=== PATIENT | female | born 1960 | race Caucasian/White ===

== ENCOUNTER → 2020-08-28 | Outpatient (CLI) | payer OTHER | LOC: KOH-I 14:04 | DX: M21.611 Bunion of right foot (principal); M79.671 Pain in right foot | CPT/HCPCS: 73630 ==

== ENCOUNTER → 2020-09-13 | Outpatient (CLI) | payer OTHER | LOC: EXRD 13:44 | DX: Z00.00 Encounter for general adult medical examination without abnormal findings (principal); Z13.820 Encounter for screening for osteoporosis; M85.89 Other specified disorders of bone density and structure, multiple sites | CPT/HCPCS: 77080 ==

== ENCOUNTER → 2021-04-09 | Outpatient (CLI) | payer OTHER | LOC: KOH-I 15:22 | DX: M25.571 Pain in right ankle and joints of right foot (principal); M79.671 Pain in right foot | CPT/HCPCS: 73610; 73630 ==

== ENCOUNTER → 2021-06-11 | Outpatient (CLI) | payer OTHER | LOC: EXRD 10:56 | DX: Z01.818 Encounter for other preprocedural examination (principal) | CPT/HCPCS: 93926 ==

== ENCOUNTER → 2021-06-26 | Day surgery (SDC) | payer OTHER ==
[~2021-06-26] VITALS: Ht 157.5 cm; Wt 74.8 kg
[~2021-06-26] MED LIST: BUSPIRONE HCL7.5 MG PO; GABAPENTIN600 MG PO; PROTONIX40 MG PO; QUETIAPINE FUMA25 MG PO; TRAZODONE HCL50 MG PO; WEEKLY-D1250 MCG PO; ZOFRAN 4 MG TAB4 MG PO
== END | disposition home or self-care (01) ==
LOC: OR 06:55
DX: G57.61 Lesion of plantar nerve, right lower limb (principal); Q89.8 Other specified congenital malformations; F45.8 Other somatoform disorders; M62.48 Contracture of muscle, other site; L57.0 Actinic keratosis; L85.9 Epidermal thickening, unspecified; M19.071 Primary osteoarthritis, right ankle and foot; Z20.822 Contact with and (suspected) exposure to COVID-19; Z90.49 Acquired absence of other specified parts of digestive tract
CPT/HCPCS: J0690; J1100; J1170; J2001; J2250; J2370; J2405; J2550; J2704; J2710; J2795; J3010; J3370; J7120; Q4133